=== PATIENT | female | born 1995 | race Caucasian/White ===

== ENCOUNTER → 2016-11-11 | Outpatient (CLI) | payer BC | END | disposition home or self-care (01) | LOC: GMA 15:39 | PROVIDERS: ATTEND Nurse Practitioner Acute Care | DX: L73.9 Follicular disorder, unspecified (principal) ==

== ENCOUNTER → 2017-04-01 | Outpatient (CLI) | payer BC | LOC: GMAJ 16:50 | PROVIDERS: ATTEND Family Medicine | DX: M79.609 Pain in unspecified limb (principal) ==

== ENCOUNTER → 2017-07-21 | Outpatient (CLI) | payer OTHER, BC ==
--- NOTE | 2017-07-22 08:32 | CT ---
EXAM DESCRIPTION: Head w/wo Contrast CLINICAL HISTORY: CLASSIC MIGRAINE COMPARISON: None available TECHNIQUE: CT brain is performed prior to and following IV administration of 100 mL of IV contrast FINDINGS: Ventricles and sulci are unremarkable. There is no hemorrhage or mass. There are no white matter abnormalities detected. The calvarium is unremarkable. The visualized paranasal sinuses and the mastoids are clear. No abnormal post contrast enhancement is seen. IMPRESSION: 1. Normal CT head This exam was performed according to our departmental dose-optimization program, which includes automated exposure control, adjustment of the mA and/or kV according to patient size and/or use of iterative reconstruction technique. Electronically signed by: Zoran Ramon MD 07/22/2017 8:30 AM CDT
== END | disposition home or self-care (01) ==
LOC: CT 09:05
PROVIDERS: ATTEND Family Medicine
DX: G43.119 Migraine with aura, intractable, without status migrainosus (principal)

== ENCOUNTER 2018-04-04 17:37 | Emergency (ER) | payer BC, OTHER ==
[2018-04-04 17:55] VITALS: O2SAT 98
--- NOTE | 2018-04-04 17:57 | ED.PDOC ---
History of Present Illness - General Chief Complaint: Abdominal Pain Stated Complaint: n/v,abd discomfort Time Seen by Provider: 04/04/18 17:56 Source: patient Exam Limitations: no limitations - History of Present Illness Initial Comments: Tika Bear 22 y/o female stated that she had sharp abdominal pain mostly on her left side for the last 3 days and the last 2 days had nausea /vomiting the last 2 days.Nofever ,chills,diarrhea some pain on urination no history of sti,no vaginal bleeding or discharge. Timing/Duration: other - see hpi Severity: moderate Improving Factors: nothing Worsening Factors: eating Associated Symptoms: other - see hpi Allergies/Adverse Reactions: Allergies Loratadine [From Claritin] Allergy (Verified 04/04/18 18:00) Home Medications: Ambulatory Orders Cefuroxime Axetil [Ceftin] 500 mg PO Q12H #10 tablet 04/04/18 Omeprazole 40 mg PO DAILY 04/04/18 Review of Systems - Review of Systems Constitutional: States: no symptoms reported EENTM: States: no symptoms reported Respiratory: States: no symptoms reported Cardiology: States: no symptoms reported Gastrointestinal/Abdominal: States: see HPI Genitourinary: States: see HPI Musculoskeletal: States: no symptoms reported Skin: States: no symptoms reported Neurological: States: no symptoms reported All other Systems: Reviewed and Negative, No Change from Baseline Past Medical History (General) - Patient Medical History Hx Seizures: No Hx Stroke: No Hx Dementia: No Hx Asthma: No Hx of COPD: No Hx Cardiac Disorders: No Hx Congestive Heart Failure: No Hx Pacemaker: No Hx Hypertension: No Hx Thyroid Disease: No Hx Diabetes: No Hx Gastroesophageal Reflux: No Hx Renal Disease: No Hx Cancer: No Hx of HIV: No Hx Hepatitis C: No Hx MRSA: No Surgical History: other - - Vaccination History Hx Tetanus, Diphtheria Vaccination: Yes Hx Influenza Vaccination: No Hx Pneumococcal Vaccination: No - Social History Hx Tobacco Use: No Hx Chewing Tobacco Use: No Hx Alcohol Use: No Hx Substance Use: No Hx Substance Use Treatment: No Hx Depression: No Hx Physical Abuse: No Hx Emotional Abuse: No Hx Suspected Abuse: No - Female History Patient is a Female of Child Bearing Age (10 -59 yrs old): Yes Hx Last Menstrual Period: 03/16/18 Patient : No Family Medical History - Family History Father Family History: No Known Living Status: Still Living Hx Family Hypertension: Yes Physical Exam - Physical Exam General Appearance: Alert, Comfortable, No apparent distress Eye Exam: bilateral normal Ears, Nose, Throat: hearing grossly normal, normal ENT inspection Neck: non-tender, full range of motion, supple Respiratory: lungs clear, normal breath sounds Cardiovascular/Chest: normal peripheral pulses, regular rate, rhythm, no murmur Peripheral Pulses: radial,right: 2+, radial,left: 2+ Gastrointestinal/Abdominal: normal bowel sounds, soft, tenderness - left side abdomen no peritoneal signs Back Exam: no CVA tenderness, no vertebral tenderness Extremity: non-tender, no pedal edema, no calf tenderness Neurologic: alert, oriented x 3 Skin Exam: normal color, warm/dry Progress - Progress Progress: 04/04/18 20:09 Vital Signs - 8 hr 04/04/18 17:51 Temperature 98.9 F Pulse Rate [ 100 H Left Brachial] Respiratory 20 Rate Blood Pressure 142/86 [Left Arm] O2 Sat by Pulse 98 Oximetry - Results/Orders Results/Orders: 04/04/18 17:55 URINE CULTURE W/COLONY COUNT Stat 04/04/18 19:20 cefTRIAXone SODIUM [Rocephin] 2 gm Sodium Chl 0.9% 100Ml Mini-Bag [NS 100ml MINI-BAG+] 100 ml IVPB ONCE Laboratory Results - last 24 hr 04/04/18 04/04/18 04/04/18 17:55 18:13 18:13 WBC 10.2 RBC 5.06 Hgb 15.2 Hct 43.7 MCV 86.4 MCH 30.0 MCHC 34.7 RDW 13.1 Plt Count 214 MPV 9.1 Absolute Neuts (auto) 6.50 Absolute Lymphs (auto) 2.70 Absolute Monos (auto) 0.80 Absolute Eos (auto) 0.20 Absolute Basos (auto) 0.00 Neutrophils % 63.5 Lymphocytes % 26.2 Monocytes % 8.2 Eosinophils % 1.7 Basophils % 0.4 Sodium 138 Potassium 3.5 L Chloride 105 Carbon Dioxide 27 Anion Gap 9.5 L BUN 10 Creatinine 0.60 BUN/Creatinine Ratio 16.7 Random Glucose 91 Serum Osmolality 274.3 L Lactic Acid Calcium 9.5 Total Bilirubin 0.8 AST 20 ALT 17 Alkaline Phosphatase 27 L Serum Total Protein 7.2 Albumin 4.1 Globulin 3.1 Albumin/Globulin Ratio 1.3 Lipase 18 L Urine Color Rebecca H Urine Appearance Clear Urine pH 5.0 Ur Specific [place] 1.010 Urine Protein 30 Urine Glucose (UA) 100 H Urine Ketones Negative Urine Blood Negative Urine Nitrite Positive H Urine Bilirubin Small H Urine Urobilinogen 2.0 H Ur Leukocyte Esterase Large H Urine RBC 1-3 Urine WBC 5-10 H Ur Epithelial Cells 3-5 Urine Bacteria 3+ H Urine HCG, Qual 04/04/18 04/04/18 18:13 18:13 WBC RBC Hgb Hct MCV MCH MCHC RDW Plt Count MPV Absolute Neuts (auto) Absolute Lymphs (auto) Absolute Monos (auto) Absolute Eos (auto) Absolute Basos (auto) Neutrophils % Lymphocytes % Monocytes % Eosinophils % Basophils % Sodium Potassium Chloride Carbon Dioxide Anion Gap BUN Creatinine BUN/Creatinine Ratio Random Glucose Serum Osmolality Lactic Acid 1.0 Calcium Total Bilirubin AST ALT Alkaline Phosphatase Serum Total Protein Albumin Globulin Albumin/Globulin Ratio Lipase Urine Color Urine Appearance Urine pH Ur Specific [place] Urine Protein Urine Glucose (UA) Urine Ketones Urine Blood Urine Nitrite Urine Bilirubin Urine Urobilinogen Ur Leukocyte Esterase Urine RBC Urine WBC Ur Epithelial Cells Urine Bacteria Urine HCG, Qual Negative - EKG/XRAY/CT CT Ordered: Yes - [id number]/[id number] acute abnormalities Departure - Departure Clinical Impression: Abdominal pain Qualifiers: Abdominal location: left lower quadrant Qualified Code(s): R10.32 - Left lower quadrant pain Urinary tract infection Qualifiers: Urinary tract infection type: site unspecified Hematuria presence: without hematuria Qualified Code(s): N39.0 - Urinary tract infection, site not specified Time of Disposition: 20:11 Disposition: Discharge to Home or Self Care Condition: Fair Departure Forms: ED Discharge - Pt. Copy, Patient Portal Self Enrollment Instructions: DI for Abdominal Pain-Adult Diet: full liquid diet - then to advance as tolerated Referrals: Ken Lind MD [Primary Care Provider] - 1-2 Weeks Prescriptions: Cefuroxime Axetil [Ceftin] 500 mg PO Q12H #10 tablet Home Medications: Ambulatory Orders Cefuroxime Axetil [Ceftin] 500 mg PO Q12H #10 tablet 04/04/18 Omeprazole 40 mg PO DAILY 04/04/18 Additional Instructions: Follow up with primary Md 06 April 2018;Continue with home medications
[2018-04-04] MEDS ORDERED: ONDANSETRON INJ 4 MG/2 ML VIAL IV ONE (18:13)
[2018-04-04] MEDS ORDERED: SODIUM CHLORIDE 0.9% 500ML 500 ML IVS ONE (18:13)
[2018-04-04] MEDS ORDERED: KETOROLAC TROMETHAMINE INJ 30 MG/ML VIAL IV ONE (18:46)
[2018-04-04] MEDS ORDERED: cefTRIAXone SODIUM 2 GM in SODIUM CHL 0.9% 100ML MINI-BAG 100 ML IVPB ONE (19:20)
[2018-04-04] MEDS ORDERED: SODIUM CHL 0.9% 100ML MINI-BAG 100 ML IVPB ONE (19:24)
--- NOTE | 2018-04-04 19:52 | CT ---
EXAM DESCRIPTION: Abdoment/Pelvis w/o Contrast CLINICAL HISTORY:22 years Female, pain Comparison: November 13, 2014 TECHNIQUE: Contiguous axial images of the abdomen and pelvis were obtained followed by reconstruction images. This exam was performed according to our departmental dose-optimization program, which includes automated exposure control, adjustment of the mA and/or kV according to patient size and/or use of iterative reconstruction technique. FINDINGS: Lung bases: Lung bases are clear. Heart: Visualized heart is within normal limits in size. Liver:Unremarkable. No focal liver lesion. Gallbladder:Unremarkable. No gallstones. No gallbladder wall thickening or pericholecystic fluid. Spleen:Unremarkable Pancreas: Pancreas is unremarkable. Adrenal glands:Within normal limits. Kidneys/ureters:Punctate calculus left renal lower pole. Right kidney is unremarkable. No hydronephrosis. No ureteral calculus. Bladder:Unremarkable. Pelvic organs: No acute abnormality Vascular structures: within normal limits Peritoneum: No free fluid. Lymph nodes: No abnormal lymph nodes. Stomach/small bowel/colon: Stomach is unremarkable. Small bowel is unremarkable. Colon is unremarkable. Appendix: Appendix seen within normal limits. 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 No acute osseous abnormality. Soft tissues: Coarse calcification within the right gluteal soft tissues.. Small fat-containing umbilical hernia. IMPRESSION: * No acute intra-abdominal abnormality. * Normal appendix. * Left renal parenchymal nonobstructive punctate calculus. No hydronephrosis. No obstructive ureteral calculus. Electronically signed by: Eric Kimball MD 04/04/2018 7:51 PM CDT
[2018-04-04] MEDS ORDERED: HYDROcodone 10MG/APAP 325MG 1 EA TAB PO ONE (20:11)
[2018-04-04 21:42] VITALS: BP 136/76; TEMP 97.9
== END 2018-04-04 20:40 | disposition home or self-care (01) ==
LOC: ER 17:37
DX: N39.0 Urinary tract infection, site not specified (principal); R11.2 Nausea with vomiting, unspecified
CPT/HCPCS: 74176; 80053; 81001; 81025; 83605; 83690; 85025; 87086; J0696; J1885; J2405; J7040; J7050

== ENCOUNTER → 2018-07-24 | Outpatient (CLI) | payer OTHER | LOC: GMATM 13:56 | PROVIDERS: ATTEND Nurse Practitioner Family | DX: R11.0 Nausea (principal) ==

== ENCOUNTER → 2018-08-04 | Outpatient (CLI) | payer OTHER | LOC: GMAJ 14:20 | PROVIDERS: ATTEND Family Medicine | DX: Z34.81 Encounter for supervision of other normal pregnancy, first trimester (principal) ==

== ENCOUNTER → 2018-08-21 | Outpatient (CLI) | payer OTHER | LOC: GMAJ 10:38 | PROVIDERS: ATTEND Family Medicine | DX: Z34.81 Encounter for supervision of other normal pregnancy, first trimester (principal) ==

== ENCOUNTER → 2019-08-24 | Outpatient (CLI) | payer OTHER | LOC: GMAJ 14:41 | PROVIDERS: ATTEND Family Medicine | DX: Z34.81 Encounter for supervision of other normal pregnancy, first trimester (principal) ==

== ENCOUNTER → 2019-09-20 | Outpatient (CLI) | payer OTHER | LOC: LAB.O 15:59 | PROVIDERS: ATTEND Obstetrics & Gynecology Reproductive Endocrinology | DX: N91.2 Amenorrhea, unspecified (principal) ==

== ENCOUNTER → 2019-09-23 | Outpatient (CLI) | payer OTHER | LOC: LAB.O 10:12 | PROVIDERS: ATTEND Obstetrics & Gynecology Reproductive Endocrinology | DX: N91.2 Amenorrhea, unspecified (principal) ==

== ENCOUNTER → 2019-09-30 | Outpatient (CLI) | payer OTHER | LOC: LAB.O 11:32 | PROVIDERS: ATTEND Obstetrics & Gynecology Reproductive Endocrinology | DX: N91.2 Amenorrhea, unspecified (principal) ==

== ENCOUNTER → 2020-08-23 | Outpatient (CLI) | payer OTHER | LOC: LAB.O 10:31 | PROVIDERS: ATTEND Family Medicine Sports Medicine | DX: N30.00 Acute cystitis without hematuria (principal) ==

== ENCOUNTER → 2020-10-04 | Outpatient (CLI) | payer OTHER | LOC: GMAJ 14:30 | PROVIDERS: ATTEND Family Medicine | DX: R53.83 Other fatigue (principal); R23.3 Spontaneous ecchymoses ==